=== PATIENT | female | born 1955 | race Caucasian/White ===

== ENCOUNTER 2021-12-15 14:05 | Emergency (ER) | payer MEDICARE, SELFPAY ==
[2021-12-15 14:20] VITALS: BP 133/69; PULSE 75; RESP 20; TEMP 36.2; O2SAT 97
[2021-12-15 14:45] LABS: Add Manual Diff / Slide Review NO; Basophils Absolute Auto 100 /uL (0-100); Eosinophils Absolute Auto 100 /uL (0-450); Eosinophils Percent Auto 0.9 % (2-4); Hemoglobin 13.7 g/dL (12.0-16.0); Lymphocytes Absolute Auto 1400 /uL (1100-4500); Lymphocytes Percent Auto 18.4 % (25-40); Mean Corpuscular HGB Conc 33.4 % (30-36); Mean Corpuscular Hemoglobin 29.1 PG (26-34); Mean Corpuscular Volume 87.3 fL (80-100); Monocytes Absolute Auto 400 /uL (0-900); Monocytes Percent Auto 4.5 % (3-14); Neutrophils Absolute Auto 5900 /uL (1500-7000); Neutrophils Percent Auto 75.2 % (50-75); Platelet Count 267 X10^3/uL (150-400); Red Blood Cell Count 4.69 X10^6/uL (4.0-5.2); Red Cell Distribution Width 13.3 % (11.6-14.8); White Blood Cell Count 7.9 X10^3/uL (4.5-11.0)
[2021-12-15 14:58] LABS: Alanine Aminotransferase 17 IU/L (<35); Albumin 4.4 g/dL (3.5-5.0); Albumin Globulin Ratio 1.6 (1.0-2.8); Alkaline Phosphatase 57 U/L (38-126); Aspartate Aminotransferase 31 IU/L (14-36); BUN Creatinine Ratio 11.4 (6-22); Bilirubin Total 0.3 mg/dL (0.2-1.3); Blood Urea Nitrogen 8 mg/dL (7-17); Calcium 9.2 mg/dL (8.4-10.2); Carbon Dioxide 32 mmol/L (22-32); Chloride 99 mmol/L (98-107); Estimated Glomerular Filt Rate > 60 mL/min (>60); Globulin 2.8 g/dL (1.7-4.1); Glucose 98 mg/dL (80-110); HEMOLYSIS 19 (0-50); Lipase 92 U/L (23-300); Potassium 4.4 mmol/L (3.4-5.1); Sodium 135 mmol/L (137-145); Total Protein 7.2 g/dL (6.3-8.2)
--- NOTE | 2021-12-15 15:50 | DI.CT.S_ITS ---
PROCEDURE: CT ABDOMEN PELVIS W CON INDICATIONS: abd pain, hx diverticulosis TECHNIQUE: After the administration of IV contrast, axial sections were acquired from the lung bases to the pubic symphysis. Coronal and sagittal reformats were performed. For radiation dose reduction, the following was used: automated exposure control, adjustment of mA and/or kV according to patient size. COMPARISON: [facility], CR, XR CHEST 2 VIEWS, 04/17/2020, 15:31. FINDINGS: Image quality: Excellent. Lung bases: Unremarkable. A small hiatal hernia is incidentally noted. Heart: No significant findings. ABDOMEN: Liver: Several simple appearing, nonenhancing is liver cysts are seen. The left liver has been resected. No suspicious liver lesions are seen. Gallbladder: Unremarkable. Biliary ducts: Unremarkable. Pancreas: Unremarkable. Spleen: Unremarkable. Adrenal Glands: Unremarkable. Kidneys and Ureters: Unremarkable. Stomach and Bowel: In this patient with this given history, scrutiny is given to the sigmoid colon and the left lower quadrant of the abdomen. Negative for diverticulitis. A few distal colonic diverticula can be seen. Within the inferior abdomen, there is abnormal thickening of small bowel loops, with hyperenhancement. Elsewhere, the small bowel demonstrates generalized mild hyperenhancement. No significant gastric abnormality is seen. Peritoneum: No focal abscess is seen. There is trace ascites. No free air. Ventral Wall: No hernia. Abdominal Nodes: No retroperitoneal or mesenteric adenopathy by size criteria. Vessels: Aorta and inferior vena cava are normal in size. PELVIS: Pelvic Organs: Presumed fibroids can be seen involving the uterus. No adnexal masses are seen on either side. Bladder: Unremarkable. Pelvic Nodes: No enlarged lymph nodes. Miscellaneous: No inguinal hernias are seen. Bones: Unremarkable. IMPRESSION: Negative for diverticulitis. Within the inferior abdomen, focal thickened small bowel can be seen, with hyperenhancement. Elsewhere, the small bowel demonstrates milder hyperenhancement. Enteritis is suspected. No findings of perforation or abscess can be seen. Mild ascites is seen. Incidental note is made of: Small hiatal hernia Prior left liver resection Numerous simple appearing liver cysts Presumed uterine fibroids Dictated by: Walter Navarro M.D. on 12/15/2021 at 16:24 Approved by: Walter Navarro M.D. on 12/15/2021 at 16:28
[2021-12-15 18:28] VITALS: BP 151/65; PULSE 65; O2SAT 99
--- NOTE | 2021-12-28 09:30 | ED_ITS ---
HPI - Abdominal Pain <Teresa Herrera PA-C - Last Filed: 12/28/21 09:38> General Chief Complaint: Abdominal Pain Stated Complaint: Abd pain, hx of diverticulosis Time Seen by Provider: 12/15/21 15:50 Source: patient Mode of arrival: Ambulatory History of Present Illness HPI narrative: 66-year-old female past medical history diverticulitis presents to the ED with 3 days left-sided abdominal pain. Patient describes the pain as cramping. Patient endorses some nausea, diarrhea. Patient denies fever, chills, chest p ain, shortness of breath, vomiting, flank pain, dysuria, lightheadedness, dizziness, syncope. Related Data Allergies Allergy/AdvReac Type Severity Reaction Status Date / Time No Known Drug Allergies Allergy Verified 12/15/21 14:22 Review of Systems <Teresa Herrera PA-C - Last Filed: 12/28/21 09:38> Review of Systems ROS Unobtainable: All systems reviewed & are unremarkable except as noted in HPI and below Constitutional Constitutional: Denies chills, Denies fatigue, Denies fever(s), Denies frequent falls, Denies lethargy and Denies weakness Eyes Eyes: Denies change in vision, Denies eye discharge, Denies irritation and Denie s loss of vision ENT Ears, Nose, Mouth, and Throat: Denies change in voice, Denies dizziness, Denies neck pain, Denies sore throat and Denies throat swelling Cardiovascular Cardiovascular: Denies chest pain, Denies irregular heart rhythm, Denies lightheadedness, Denies palpitations, Denies dyspnea, Denies dyspnea on exertion and Denies orthopnea Respiratory Respiratory: Denies cough, Denies dyspnea, Denies dyspnea on exertion and Denies wheezing Gastrointestinal Gastrointestinal: Reports abdominal pain, Denies change in bowel habits, Reports diarrhea, Reports nausea and Denies vomiting Genitourinary Genitourinary: Denies hematuria, Denies flank pain, Denies urinary incontinence and Denies urinary urgency Musculoskeletal Musculoskeletal: Denies back pain, Denies muscle weakness, Denies neck pain, Denies numbness and Denies tingling Integumentary/Breasts Skin/Breast: Denies pruritus, Denies erythema, Denies rash and Denies wounds Neurologic Neurologic: Denies behavioral changes, Denies confusion, Denies dizziness, Denies frequent falls, Denies loss of vision, Denies numbness, Denies tingling a nd Denies weakness Psychiatric Psychiatric: Denies anxiety, Denies behavioral changes, Denies confusion, Denies depression, Denies homicidal ideation and Denies suicidal ideation Endocrine Endocrine: Denies fatigue, Denies flushing and Denies palpitations Hematologic/Lymphatic Hematologic/Lymphatic: Denies easy bruising Allergic/Immunologic Allergic/Immunologic: Denies urticaria, Denies throat swelling and Denies wheezing Exam <Teresa Herrera PA-C - Last Filed: 12/28/21 09:38> Narrative Exam Narrative: Const General:?cooperative, healthy appearing and comfortable [facility] Head:?normal to inspection Ears:?hearing grossly normal bilaterally Nose:?external nose normal Face and sinus:?normal facial exam and sinuses nontender Mouth:?oral mucosae normal Throat:?posterior oropharynx normal Eyes General:?appearance normal, both eyes and all related structures Neck Neck:?normal visual inspection and no lymphadenopathy noted Resp Effort & Inspection:?normal respiratory effort Auscultation:?clear to auscultation bilaterally Cardio Rate:?regular rate Rhythm:?regular rhythm Gastrointestinal Abdomen is soft, nondistended, tender to palpation in the left lower quadrant. Neuro General:?patient alert, patient awake and patient oriented x3 Initial Vital Signs Initial Vital Signs: Vital Signs Temperature 97.2 F L 12/15/21 14:20 Pulse Rate 75 12/15/21 14:20 Respiratory Rate 20 12/15/21 14:20 Blood Pressure 133/69 12/15/21 14:20 Pulse Oximetry 97 12/15/21 14:20 Oxygen Delivery Method 12/15/21 14:20 <Andreina Mayo DO - Last Filed: 01/18/22 13:37> Initial Vital Signs Initial Vital Signs: Vital Signs Temperature 97.2 F L 12/15/21 14:20 Pulse Rate 75 12/15/21 14:20 Respiratory Rate 20 12/15/21 14:20 Blood Pressure 133/69 12/15/21 14:20 Pulse Oximetry 97 12/15/21 14:20 Oxygen Delivery Method 12/15/21 14:20 MDM - Abdominal Pain <NEELIMA Ace Last Filed: 12/28/21 09:38> Lab Data Lab results narrative: Labs within normal limits. UA without UTI Result diagrams: 12/15/21 14:29 12/15/21 14:29 Labs: Lab Results 12/15/21 12/15/21 Range/Units 14:29 14:29 WBC 7.9 (4.5-11.0) X10^3/uL RBC 4.69 (4.0-5.2) X10^6/uL Hgb 13.7 (12.0-16.0) g/dL Hct 41.0 (36-46) % MCV 87.3 (80-100) fL MCH 29.1 (26-34) PG MCHC 33.4 (30-36) % RDW 13.3 (11.6-14.8) % Plt Count 267 (150-400) X10^3/uL Neut % (Auto) 75.2 H (50-75) % Lymph % (Auto) 18.4 L (25-40) % Gove % (Auto) 4.5 (3-14) % Eos % (Auto) 0.9 L (2-4) % Baso % (Auto) 1.0 (0-2) % Neut # (Auto) 5900 (5851-5422) /uL Lymph # (Auto) 1400 (0277-8167) /uL Gove # (Auto) 400 (0-900) /uL Eos # (Auto) 100 (0-450) /uL Baso # (Auto) 100 (0-100) /uL Sodium 135 L (137-145) mmol/L Potassium 4.4 (3.4-5.1) mmol/L Chloride 99 (98-107) mmol/L Carbon Dioxide 32 (22-32) mmol/L BUN 8 (7-17) mg/dL Creatinine 0.70 (0.52-1.04) mg/dL Estimated GFR > 60 (>60) mL/min BUN/Creatinine Ratio 11.4 (6-22) Glucose 98 (80-110) mg/dL Calcium 9.2 (8.4-10.2) mg/dL Total Bilirubin 0.3 (0.2-1.3) mg/dL AST 31 (14-36) IU/L ALT 17 (<35) IU/L Alkaline Phosphatase 57 (38-126) U/L Total Protein 7.2 (6.3-8.2) g/dL Albumin 4.4 (3.5-5.0) g/dL Globulin 2.8 (1.7-4.1) g/dL Albumin/Globulin Ratio 1.6 (1.0-2.8) Lipase 92 (23-300) U/L Point of care testing: Urine Dip Bedside Urine Glucose Negative Bedside Urine Bilirubin - Negative Bedside Urine Ketone - Negative Urine Specific [place] 1.010 Bedside Urine Occult Blood - Negative Bedside Urine pH 6.5 Bedside Urine Protein - Negative Bedside Urine Urobilinogen - Negative Bedside Urine Nitrite - Negative Bedside Urine Leukocytes - Negative Esterase Imaging Data CT scan - abdomen/pelvis: Radiologist's Impression: PROCEDURE:? CT ABDOMEN PELVIS W CON ? INDICATIONS:? abd pain, hx diverticulosis ? TECHNIQUE:? After the administration of IV contrast, axial sections were acquired from the lung bases to the pubic symphysis.? Coronal and sagittal reformats were performed.? For radiation dose reduction, the following was used:? automated exposure control, adjustment of mA and/or kV according to patient size. ? COMPARISON:? [facility], CR, XR CHEST 2 VIEWS, 04/17/2020, 15:31. ? FINDINGS:? Image quality:? Excellent.? ? Lung bases:? Unremarkable.? ? A small hiatal hernia is incidentally noted.? Heart:? No significant findings. ? ? ABDOMEN: Liver:? Several simple appearing, nonenhancing is liver cysts are seen.? The left liver has been resected.? No suspicious liver lesions are seen. Gallbladder:? Unremarkable.? ? Biliary ducts:? Unremarkable.? ? Pancreas:? Unremarkable.? ? Spleen:? Unremarkable.? ? Adrenal Glands:? Unremarkable.? ? Kidneys and Ureters:? Unremarkable.? ? ? Stomach and Bowel: In this patient with this given history, scrutiny is given to the sigmoid colon and the left lower quadrant of the abdomen.? Negative for diverticulitis.? A few distal colonic diverticula can be seen. Within the inferior abdomen, there is abnormal thickening of small bowel loops, with hyperenhancement.? Elsewhere, the small bowel demonstrates generalized mild hyperenhancement. No significant gastric abnormality is seen. Peritoneum:? No focal abscess is seen.? There is trace ascites.? No free air.? ? Ventral Wall: ? No hernia.? Abdominal Nodes:? No retroperitoneal or mesenteric adenopathy by size criteria.? Vessels:? Aorta and inferior vena cava are normal in size.? ? PELVIS: Pelvic Organs:? Presumed fibroids can be seen involving the uterus.? No adnexal masses are seen on either side.? Bladder:? Unremarkable.? ? Pelvic Nodes: No enlarged lymph nodes.? Miscellaneous: No inguinal hernias are seen. ? ? ? Bones:? Unremarkable.? IMPRESSION:? ? Negative for diverticulitis. ? Within the inferior abdomen, focal thickened small bowel can be seen, with hyperenhancement.? Elsewhere, the small bowel demonstrates milder hyperenhancement.? Enteritis is suspected. ? No findings of perforation or abscess can be seen. ? Mild ascites is seen. ? ? Incidental note is made of: Small hiatal hernia Prior left liver resection Numerous simple appearing liver cysts Presumed uterine fibroids ? Dictated by: Walter Navarro M.D. on 12/15/2021 at 16:24 ? ? Approved by: Walter Navarro M.D. on 12/15/2021 at 16:28 ? MDM Narrative Medical decision making narrative: 66-year-old female past medical history diverticulitis presents to the ED with 3 days left-sided abdominal pain. Concern for diverticulitis versus enteritis versus other intra-abdominal pathology. Will obtain labs, lactate, CT abdomen p gretchen. Patient declines pain medication at this time. CT abdomen pelvis shows no evidence of diverticulitis, shows enteritis. Counseled patient on diet for gastroenteritis, ED return precautions. Patient verbalized understanding. <Andreina Mayo, DO - Last Filed: 01/18/22 13:37> Lab Data Labs: Lab Results 12/15/21 12/15/21 Range/Units 14:29 14:29 WBC 7.9 (4.5-11.0) X10^3/uL RBC 4.69 (4.0-5.2) X10^6/uL Hgb 13.7 (12.0-16.0) g/dL Hct 41.0 (36-46) % MCV 87.3 (80-100) fL MCH 29.1 (26-34) PG MCHC 33.4 (30-36) % RDW 13.3 (11.6-14.8) % Plt Count 267 (150-400) X10^3/uL Neut % (Auto) 75.2 H (50-75) % Lymph % (Auto) 18.4 L (25-40) % Gove % (Auto) 4.5 (3-14) % Eos % (Auto) 0.9 L (2-4) % Baso % (Auto) 1.0 (0-2) % Neut # (Auto) 5900 (7828-7391) /uL Lymph # (Auto) 1400 (8914-8274) /uL [place] # (Auto) 400 (0-900) /uL Eos # (Auto) 100 (0-450) /uL Baso # (Auto) 100 (0-100) /uL Sodium 135 L (137-145) mmol/L Potassium 4.4 (3.4-5.1) mmol/L Chloride 99 (98-107) mmol/L Carbon Dioxide 32 (22-32) mmol/L BUN 8 (7-17) mg/dL Creatinine 0.70 (0.52-1.04) mg/dL Estimated GFR > 60 (>60) mL/min BUN/Creatinine Ratio 11.4 (6-22) Glucose 98 (80-110) mg/dL Calcium 9.2 (8.4-10.2) mg/dL Total Bilirubin 0.3 (0.2-1.3) mg/dL AST 31 (14-36) IU/L ALT 17 (<35) IU/L Alkaline Phosphatase 57 (38-126) U/L Total Protein 7.2 (6.3-8.2) g/dL Albumin 4.4 (3.5-5.0) g/dL Globulin 2.8 (1.7-4.1) g/dL Albumin/Globulin Ratio 1.6 (1.0-2.8) Lipase 92 (23-300) U/L Point of care testing: Urine Dip Bedside Urine Glucose Negative Bedside Urine Bilirubin - Negative Bedside Urine Ketone - Negative Urine Specific [place] 1.010 Bedside Urine Occult Blood - Negative Bedside Urine pH 6.5 Bedside Urine Protein - Negative Bedside Urine Urobilinogen - Negative Bedside Urine Nitrite - Negative Bedside Urine Leukocytes - Negative Esterase Discharge Plan Departure Patient Disposition: Home Clinical Impression: Enteritis Instructions: Gastroenteritis Diet Activity Restrictions/Additional Instructions: You were evaluated in the ED today for abdominal pain. Your labs were normal. Your CT abdomen pelvis does not show diverticulitis, which shows signs of enteritis, which could be caused from food poisoning. Please continue to stay well hydrated. You may continue to eat bland an easy to digest foods. You may take Tylenol for your symptoms. Return to the ED if you have worsening ab dominal pain, nausea, vomiting, fever, chills. Referrals: Rosy Orlando MD [Primary Care Provider] - Visit Report Forms: Patient Portal/API <Andreina Mayo DO - Last Filed: 01/18/22 13:37> Cosign ED Attending aCrolyneature Attestation: I was immediately available in the department for consultation. Documentation has been reviewed.
== END 2021-12-15 18:29 | disposition home or self-care (01) ==
PROVIDERS: Emergency Medicine; Emergency Provider Student in an Organized Health Care Education/Training Program; PCP Internal Medicine
DX: K52.9 Noninfective gastroenteritis and colitis, unspecified (principal); R11.0 Nausea
CPT/HCPCS: 74177; 80053; 81003; 83690; 85025; 99281; 99284; Q9967

== ENCOUNTER 2024-10-22 07:41 | Emergency (ER) | payer MEDICARE, SELFPAY ==
[2024-10-22 07:50] VITALS: PULSE 87; RESP 14; O2SAT 98
[2024-10-22 07:58] VITALS: BP 135/76; PULSE 87; RESP 18; TEMP 36.9; O2SAT 99; BMI 21.9
[2024-10-22 08:00] VITALS: PULSE 88; O2SAT 98
[2024-10-22 08:01] VITALS: BP 130/64; PULSE 80; O2SAT 99
[2024-10-22 08:07] LABS: Add Manual Diff / Slide Review NO; Basophils Absolute Auto 100 /uL (0-100); Basophils Percent Auto 0.5 % (0-2); Eosinophils Absolute Auto 100 /uL (0-450); Eosinophils Percent Auto 0.7 % (2-4); Hematocrit 40.4 % (36-46); Hemoglobin 13.4 g/dL (12.0-16.0); Lymphocytes Absolute Auto 1800 /uL (1100-4500); Lymphocytes Percent Auto 14.1 % (25-40); Mean Corpuscular Hemoglobin 28.8 PG (26-34); Monocytes Absolute Auto 700 /uL (0-900); Monocytes Percent Auto 5.9 % (3-14); Neutrophils Absolute Auto 10000 /uL (1500-7000); Neutrophils Percent Auto 78.8 % (50-75); Platelet Count 284 X10^3/uL (150-400); Red Blood Cell Count 4.64 X10^6/uL (4.0-5.2); Red Cell Distribution Width 13.6 % (11.6-14.8); White Blood Cell Count 12.7 X10^3/uL (4.5-11.0)
[2024-10-22 08:20] LABS: Alanine Aminotransferase 19 IU/L (<35); Albumin 4.4 g/dL (3.5-5.0); Albumin Globulin Ratio 1.6 (1.0-2.8); Alkaline Phosphatase 58 U/L (38-126); Aspartate Aminotransferase 27 IU/L (14-36); BUN Creatinine Ratio 18.8 (6-22); Bilirubin Total 0.7 mg/dL (0.2-1.3); Blood Urea Nitrogen 15 mg/dL (7-17); Calcium 9.3 mg/dL (8.4-10.2); Carbon Dioxide 27 mmol/L (22-32); Chloride 100 mmol/L (98-107); Estimated Glomerular Filt Rate > 60 mL/min (>60); Globulin 2.7 g/dL (1.7-4.1); Glucose 129 mg/dL (80-110); HEMOLYSIS < 15 (0-50); Lipase 90 U/L (23-300); Potassium 3.9 mmol/L (3.4-5.1); Sodium 135 mmol/L (137-145); Total Protein 7.1 g/dL (6.3-8.2)
--- NOTE | 2024-10-22 08:23 | ED.ABDPAIN ---
HPI - Abdominal Pain General Chief Complaint: Abdominal Pain Stated Complaint: lower left stomach pain Time Seen by Provider: 10/22/24 08:20 Source: patient and old records reviewed Mode of arrival: Ambulatory Limitations: no limitations History of Present Illness HPI narrative: 69-year-old female no reported medical issues had a right liver resection for a large cyst 2005. Patient presents with complaint of left lower abdominal pain that started last night has been persistent throughout the night fairly constant. Patient denies any fevers or chills. No chest pain or shortness of breath. No nausea or vomiting. Patient states no diarrhea or constipation. No black or bloody stools. States she was has been formed. Denies any dysuria, urgency or frequency. Does not think that she was any flank pain associated. Patient has had diverticulitis in the past but remotely and does not recall if it felt similar. Patient does not have any rash or skin changes. She states no daily medications. Had a prior liver resection for a large cyst. No known drug allergies. No tobacco, occasional alcohol, no recreational drugs. She was accompanied by her . Related Data Previous Rx's Medication Instructions Recorded amoxicillin 875 mg-potassium 1 tab PO BID #20 tabs 10/22/24 clavulanate 125 mg tablet Allergies Allergy/AdvReac Type Severity Reaction Status Date / Time No Known Drug Allergies Allergy Verified 12/15/21 14:22 Review of Systems Review of Systems ROS Unobtainable: All systems reviewed & are unremarkable except as noted in HPI and below Patient History Social History Smoking Status: Never smoker Smoking Status: Never smoker Exam Narrative Exam Narrative: GENERAL: Alert and oriented x three, female in mild distress HEENT: Head normocephalic, atraumatic, EOMI, pupils reactive, face symmetric, moist mucous membranes NECK: Supple, full range of motion CARDIOVASCULAR: Regular rate and rhythm without murmurs, rubs or gallops. RESPIRATORY: Breath sounds equal bilaterally, no wheezes rales or rhonchi. ABDOMEN: Soft, positive for left lower quadrant tenderness. Normoactive bowel sounds all 4 quadrants. No guarding or rebound, rigidity, no mass, no rash or skin change. : No CVA tenderness EXTREMITIES: Normal range of motion, no clubbing or edema. Neurovascularly intact NEUROLOGICAL: Cranial nerves II through XII grossly intact. Moving all extremities SKIN: Warm, dry, no petechiae, no rashes or lesions. Initial Vital Signs Initial Vital Signs: Vital Signs Pulse Rate 87 10/22/24 07:50 Respiratory Rate 14 10/22/24 07:50 Pulse Oximetry 98 10/22/24 07:50 Course Orders Ordered: ED Orders 10/22/24 07:55 Complete Blood Count AUTO DIFF Stat Comprehensive Metabolic Panel Stat Lipase Stat 10/22/24 08:30 Urine Microscopic Stat 10/22/24 08:33 CT abdomen pelvis w con Stat Discontinued Medications Amoxicillin/Clavulanate Potassium (Amoxicillin/Clav 875/125 Mg) 1 tab PO NOW ONE Stop: 10/22/24 10:09 Last Admin: 10/22/24 10:17 Dose: 1 tab Documented By: KIERAN Ondansetron HCl (Ondansetron 4 Mg/2 Ml Inj) 4 mg IV NOW PRN PRN Reason: Nausea And Vomiting Ondansetron HCl (Ondansetron 4 Mg Odt) 4 mg PO NOW PRN PRN Reason: Nausea And Vomiting Vital Signs Vital signs: Vital Signs - 8 hr 10/22/24 07:50 10/22/24 07:58 10/22/24 08:00 Temperature 98.4 F Pulse Rate 87 87 88 Respiratory Rate 14 18 Blood Pressure 135/76 Pulse Oximetry 98 99 98 Oxygen Delivery Method Room Air 10/22/24 08:01 10/22/24 08:01 10/22/24 08:30 Temperature Pulse Rate 80 79 Respiratory Rate Blood Pressure 130/64 Pulse Oximetry 99 99 Oxygen Delivery Method 10/22/24 10:23 Temperature 98.3 F Pulse Rate 82 Respiratory Rate 18 Blood Pressure 138/68 Pulse Oximetry 97 Oxygen Delivery Method Room Air MDM - Abdominal Pain Lab Data 10/22/24 07:55 10/22/24 07:55 Labs: Lab Results 10/22/24 10/22/24 Range/Units 07:55 08:30 WBC 12.7 H (4.5-11.0) X10^3/uL RBC 4.64 (4.0-5.2) X10^6/uL Hgb 13.4 (12.0-16.0) g/dL Hct 40.4 (36-46) % MCV 87.0 (80-100) fL MCH 28.8 (26-34) PG MCHC 33.0 (30-36) % RDW 13.6 (11.6-14.8) % Plt Count 284 (150-400) X10^3/uL Neut % (Auto) 78.8 H (50-75) % Lymph % (Auto) 14.1 L (25-40) % [place] % (Auto) 5.9 (3-14) % Eos % (Auto) 0.7 L (2-4) % Baso % (Auto) 0.5 (0-2) % Neut # (Auto) 40898 H (4169-8461) /uL Lymph # (Auto) 1800 (7186-2283) /uL [place] # (Auto) 700 (0-900) /uL Eos # (Auto) 100 (0-450) /uL Baso # (Auto) 100 (0-100) /uL Sodium 135 L (137-145) mmol/L Potassium 3.9 (3.4-5.1) mmol/L Chloride 100 (98-107) mmol/L Carbon Dioxide 27 (22-32) mmol/L BUN 15 (7-17) mg/dL Creatinine 0.80 (0.52-1.04) mg/dL Estimated GFR > 60 (>60) mL/min BUN/Creatinine Ratio 18.8 (6-22) Glucose 129 H (80-110) mg/dL Calcium 9.3 (8.4-10.2) mg/dL Total Bilirubin 0.7 (0.2-1.3) mg/dL AST 27 (14-36) IU/L ALT 19 (<35) IU/L Alkaline Phosphatase 58 (38-126) U/L Total Protein 7.1 (6.3-8.2) g/dL Albumin 4.4 (3.5-5.0) g/dL Globulin 2.7 (1.7-4.1) g/dL Albumin/Globulin Ratio 1.6 (1.0-2.8) Lipase 90 (23-300) U/L Urine RBC 0-1/hpf (0-5/HPF) Urine WBC None seen (0-5/HPF) Ur Squamous Epith Cells None seen (0-5/HPF) Urine Bacteria None seen (None) Ur Culture Indicated? Cult not indicated Vol Urine Centrifuged 10ml (spun) Point of care testing: Urine Dip Bedside Urine Glucose Negative Bedside Urine Bilirubin - Negative Bedside Urine Ketone - Negative Urine Specific [place] 1.010 Bedside Urine Occult Blood +/- Bedside Urine pH 6.0 Bedside Urine Protein - Negative Bedside Urine Urobilinogen - Negative Bedside Urine Nitrite - Negative Bedside Urine Leukocytes - Negative Esterase MDM Narrative Medical decision making narrative: Labs show white count of 12.7 hemoglobin of 13 platelets of 284, sodium is 135 glucose is 129 electrolytes and creatinine are otherwise normal, LFTs are negative lipase is 90. Point of care urine shows blood, urine microscopy CT abdomen/pelvis shows uncomplicated diverticulitis descending colon without perforation. Prior partial left hepatic lobe resection multiple hepatic cysts. Myomatous uterus. Reviewed findings with the patient she has follow up she was aware of the hepatic cysts that are currently present in his supposed to follow these up soon. We will start oral antibiotic patient was given 1st dose of Augmentin here. Defers anything additional for pain. Discussed return precautions all questions answered. Discharge Plan Departure Patient Disposition: Home Clinical Impression: Diverticulitis Instructions: DI for Diverticulitis Activity Restrictions/Additional Instructions: Follow up with your physician for recheck. Your workup today did show diverticulitis, you did have multiple hepatic cysts present your imaging as well. If needed you can take acetaminophen up to a 1000 mg every 6 hours and/or ibuprofen up to 600 mg every 6 hours as needed for pain. Take oral antibiotics until completed. Prescription sent to [facility] [place]. Please return for fevers, worsening abdominal back or flank pain, persistent vomiting, new black or bloody stools, lightheadedness or passing out or other new or concerning changes. Prescriptions: New amoxicillin-pot clavulanate 875-125 mg tablet 1 tab PO BID Qty: 20 0RF Referrals: Rosy Orlando MD [Primary Care Provider] - Stand Alone Forms: Patient Portal/API/Survey
[2024-10-22 08:30] VITALS: PULSE 79; O2SAT 99
--- NOTE | 2024-10-22 08:33 | DI.CT.S_ITS ---
PROCEDURE: CT ABDOMEN PELVIS W CON INDICATIONS: LLQ pain, hx diverticulitis, hx of liver resection for cyst TECHNIQUE: After the administration of intravenous contrast, axial sections acquired from the lung bases to the pubic symphysis. Coronal and sagittal reformats were performed. For radiation dose reduction, the following was used: automated exposure control, adjustment of mA and/or kV according to patient size. COMPARISON: [facility], CT, CT ABDOMEN PELVIS W CON, 12/15/2021, 16:17. FINDINGS: Image quality: Diagnostic. Lower Chest: No significant findings. ABDOMEN: Liver: Multiple hepatic cysts. Prior partial left hepatic lobe resection. Gallbladder: No radiopaque gallstones or wall thickening. Biliary ducts: No biliary dilation. Pancreas: No ductal dilation. Pancreatic divisum versus prominent pancreatic duct. Spleen: Size is within normal limits. Adrenal Glands: No adrenal nodules. Kidneys and Ureters: No hydronephrosis. No solid mass. No complex renal cystic lesion which requires follow up. Stomach and Bowel: Diverticulitis of the descending colon, with wall thickening and pericolonic fat stranding with trace fluid. No abscess. Peritoneum: No free air. Ventral Wall: No significant ventral hernia. Abdominal Nodes: No retroperitoneal or mesenteric adenopathy by size criteria. Vessels: Aorta and inferior vena cava are normal in size. PELVIS: Pelvic Organs: Myomatous uterus. Bladder: No bladder wall thickening, accounting for underdistention. Pelvic Nodes: No enlarged lymph nodes. Miscellaneous: No inguinal hernias are seen. Bones: No aggressive osseous abnormality. No free fluid IMPRESSION: Uncomplicated diverticulitis of the descending colon, without perforation. Dictated by: Reza Rodriguez M.D. on 10/22/2024 at 8:49 Approved by: Reza Rodriguez M.D. on 10/22/2024 at 8:55
[2024-10-22 08:45] LABS: Urine Volume 10mL (spun)
[2024-10-22 08:48] LABS: Bacteria Urine None Seen; Culture Indicated Urine Cult Not Indicated; RBC Urine 0-1/HPF (0-5/HPF); Squamous Epithelial Cell Urine None Seen (0-5/HPF); WBC Urine None Seen (0-5/HPF)
[2024-10-22] MEDS: AMOXICILLIN/CLAV 875/125 MG 1 TAB PO (10:17)
[2024-10-22 10:23] VITALS: BP 138/68; PULSE 82; RESP 18; TEMP 36.8; O2SAT 97
== END 2024-10-22 10:23 | disposition home or self-care (01) ==
PROVIDERS: Emergency Provider Emergency Medicine; PCP Internal Medicine
DX: K57.32 Diverticulitis of large intestine without perforation or abscess without bleeding (principal); Z98.890 Other specified postprocedural states
CPT/HCPCS: 36415; 74177; 80053; 81003; 81015; 83690; 85025; 99284; Q9967